=== PATIENT | male | born 1965 | race Caucasian/White ===

== ENCOUNTER 2019-12-12 19:47 | Emergency (ER) | payer SELFPAY ==
[~2019-12-12] VITALS: Ht 172.7 cm; Wt 72.6 kg
[2019-12-12 19:47] VITALS: BP 133/89
[2019-12-12] MEDS ORDERED: ONDANSETRON 4 MG ODT PO ONE (20:25)
[2019-12-12 20:41] LABS: BASOPHILS % (AUTO) 0.7 % (0.0-2.0); EOSINOPHILS % (AUTO) 0.2 % (0.0-4.0); HEMATOCRIT 42.8 % (36-52); HEMOGLOBIN 14.7 g/dL (12.0-18.0); LYMPHOCYTES # (AUTO) 1.8 K/uL (2.0-11.5); LYMPHOCYTES % (AUTO) 41.7 % (20.5-51.1); MEAN CORPUSCULAR HEMOGLOBIN 34 pg (27-31); MEAN CORPUSCULAR HGB CONC 34 g/dL (33-37); MEAN CORPUSCULAR VOLUME 97.8 fL (80-94); MONOCYTES # (AUTO) 0.3 K/uL (0.8-1.0); MONOCYTES % (AUTO) 6.3 % (1.7-9.3); NEUTROPHILS # (AUTO) 2.2 K/uL (1.8-7.7); NEUTROPHILS % (AUTO) 51.1 % (42.2-75.2); PLATELET COUNT (AUTO) 207 K/uL (140-450); RED BLOOD CELL COUNT(AUTO) 4.38 MIL/uL (4.20-6.10); RED CELL DISTRIBUTION WIDTH 14.2 % (11.6-13.7); WHITE BLOOD COUNT (AUTO) 4.3 K/uL (4.8-10.8)
[2019-12-12 21:07] LABS: ANION GAP 10.4 (8-16); ASPARTATE AMINOTRANSFERASE 106 U/L (15-37); CARBON DIOXIDE 35.9 mmol/L (21-32); CHLORIDE 99 mmol/L (98-107); CREATININE 0.7 mg/dL (0.6-1.3); GFR ARICAN-AMERICAN 151 mL/min (>90); GLUCOSE 104 mg/dL (74-106); POTASSIUM 3.3 mmol/L (3.5-5.1); SODIUM SERUM 142 mmol/L (136-145); TOTAL BILIRUBIN 0.5 mg/dL (0.0-1.0); UREA NITROGEN, BLOOD 7 mg/dL (7-18)
[2019-12-12 21:08] LABS: ACETAMINOPHEN < 0.5 ug/ml (10-30); SALICYLATE < 2.8 mg/dL (2.8-20.0)
[2019-12-12 23:24] VITALS: BP 108/66
== END 2019-12-12 23:23 | disposition left against medical advice (07) ==
LOC: MED 19:47
DX: F10.129 Alcohol abuse with intoxication, unspecified (principal); E87.6 Hypokalemia; R74.0 Nonspecific elevation of levels of transaminase and lactic acid dehydrogenase [LDH]
CPT/HCPCS: 36415; 80053; 85025; 99283; G0480; G0482; Q0162

== ENCOUNTER 2019-12-13 14:16 | Emergency (ER) | payer SELFPAY ==
[~2019-12-13] VITALS: Ht 172.7 cm; Wt 72.6 kg
[2019-12-13] MEDS ORDERED: NACL 0.9% 1,000 ML IV ONE (14:45)
[2019-12-13 16:26] VITALS: BP 135/90
== END 2019-12-13 16:26 | disposition home or self-care (01) ==
LOC: MED 14:16
DX: F10.129 Alcohol abuse with intoxication, unspecified (principal); I10 Essential (primary) hypertension
CPT/HCPCS: 81002; 99283; J7030